=== PATIENT | female | born 1985 | race Two or more races ===

== ENCOUNTER 2020-06-19 15:15 | Emergency (ER) | payer BC, OTHER ==
[2020-06-19 16:02] VITALS: BP 122/76; PULSE 79; TEMP 99; BMI 22.6
== END 2020-06-19 15:57 | disposition home or self-care (01) ==
LOC: FER 15:15
DX: S10.96XA Insect bite of unspecified part of neck, initial encounter (principal)
CPT/HCPCS: 99283-25